=== PATIENT | male | born 1975 | race Two or more races ===

== ENCOUNTER 2020-07-16 19:58 | Emergency (ER) | payer OTHER ==
[~2020-07-16] VITALS: Ht 180.3 cm; Wt 81.8 kg
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
[2020-07-16] MEDS ORDERED: TRAM-48 PO ×2 (20:52→21:13)
[2020-07-16] MEDS ORDERED: CYCL10TA2 PO ×2 (20:52→21:13)
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
[2020-07-16 21:36] VITALS: BP 141/80
== END 2020-07-16 21:45 | disposition home or self-care (01) ==
LOC: ER 19:58
DX: S93.492A Sprain of other ligament of left ankle, initial encounter (principal); M25.562 Pain in left knee; R60.0 Localized edema; M25.561 Pain in right knee; V98.8XXA Other specified transport accidents, initial encounter; Y93.89 Activity, other specified; Y92.413 State road as the place of occurrence of the external cause; Y99.8 Other external cause status
CPT/HCPCS: 73610; 99285; 73562-50